=== PATIENT | male | born 1985 | race Caucasian/White ===

== ENCOUNTER 2017-01-29 20:54 | Emergency (ER) | payer SELFPAY ==
[~2017-01-29] VITALS: Ht 162.6 cm; Wt 57.0 kg
[2017-01-29 21:22] VITALS: Ht 162.6 cm; Wt 57.0 kg
== END 2017-01-30 02:16 | disposition left against medical advice (07) ==
LOC: E/R 20:54
DX: Z53.21 Procedure and treatment not carried out due to patient leaving prior to being seen by health care provider (principal)